=== PATIENT | male | born 1945 | race Hispanic/Latino ===

== ENCOUNTER 2022-09-17 15:51 | Emergency (ER) | payer OTHER, MEDICARE ==
[~2022-09-17] VITALS: Ht 160 cm; Wt 72.6 kg
[2022-09-17 16:28] LABS: BASOPHILS % (AUTO) 0.4 % (0.0-5.0); EOSINOPHILS % (AUTO) 1.2 % (0.0-8.0); HEMATOCRIT 38.1 % (42-54); LYMPHOCYTES % (AUTO) 11.2 % (21.0-51.0); MEAN CORPUSCULAR HEMOGLOBIN 29.8 pg (27.0-33.0); MEAN CORPUSCULAR HGB CONC 32.8 g/dL (32.0-36.0); MEAN CORPUSCULAR VOLUME 90.7 fL (79-99); MONOCYTES % (AUTO) 11.8 % (3.0-13.0); PLATELET COUNT (AUTO) 239 K/uL (130-400); WHITE BLOOD COUNT (AUTO) 13.8 K/uL (4.8-10.8)
[2022-09-17 16:45] LABS: ALBUMIN 3.7 g/dL (3.5-5.0); CREATININE 4.4 mg/dL (0.5-1.5); MAGNESIUM 2.5 mg/dL (1.80-2.40); TOTAL PROTEIN, SERUM 8.6 g/dL (6.0-8.3)
[2022-09-17] MEDS ORDERED: 0.9% NACL 500ML IV.SOLN 500 ML IV ONE ×2 (18:00→19:30)
[2022-09-17 20:15] VITALS: BP 136/53
== END 2022-09-17 20:49 | disposition home or self-care (01) ==
LOC: EDH 15:51
DX: S20.212A Contusion of left front wall of thorax, initial encounter (principal); J06.9 Acute upper respiratory infection, unspecified; I12.9 Hypertensive chronic kidney disease with stage 1 through stage 4 chronic kidney disease, or unspecified chronic kidney disease; E11.22 Type 2 diabetes mellitus with diabetic chronic kidney disease; N18.9 Chronic kidney disease, unspecified; I63.9 Cerebral infarction, unspecified; G30.9 Alzheimer's disease, unspecified; F02.80 Dementia in other diseases classified elsewhere, unspecified severity, without behavioral disturbance, psychotic disturbance, mood disturbance, and anxiety; W18.39XA Other fall on same level, initial encounter; Y93.E1 Activity, personal bathing and showering; Y92.89 Other specified places as the place of occurrence of the external cause; Y99.8 Other external cause status
CPT/HCPCS: 99285; 70450; 96360; 71046; 87635; 96361; 83735; 84484; 80053; 85025; 87804 ×2; 36415; 72125; 71250; 93005; C9803